=== PATIENT | female | born 1975 | race Caucasian/White ===

== ENCOUNTER 2018-06-10 13:30 | Inpatient (IN) | payer OTHER ==
[~2018-06-10] VITALS: Ht 152.4 cm; Wt 81.2 kg
[2018-06-10] MEDS ORDERED: AVALIDE 300-121 EACH PO (15:55)
[2018-06-15] MEDS ORDERED: OXYC1TAB9 PO (14:29)
[2018-06-15] MEDS ORDERED: IBUPROFEN800 MG PO (14:29)
== END 2018-06-15 14:34 | disposition home or self-care (01) | DRG 743 ==
LOC: O/R 06-13 05:30 → OB/GYN 06-13 07:00
PROVIDERS: ADMIT Obstetrics & Gynecology
PROC: 0UT90ZZ Resection of Uterus, Open Approach (ICD-10-PCS; principal; 2018-06-13 07:00)
DX: D25.1 Intramural leiomyoma of uterus (principal); D25.0 Submucous leiomyoma of uterus; D25.2 Subserosal leiomyoma of uterus; N84.0 Polyp of corpus uteri; N72 Inflammatory disease of cervix uteri